=== PATIENT | male | born 1995 | race Caucasian/White ===

== ENCOUNTER 2018-01-13 12:16 | Inpatient (IN) | payer MEDICARE, OTHER ==
[2018-01-13 13:36] LABS: ADD MAN DIFF? NO
[2018-01-13 13:38] LABS: BASOPHILS % 0.4 % (0.0-2.0); EOSINOPHILS # 0.1 10^3/ul (0.0-0.5); HEMATOCRIT 47.8 % (42.0-52.0); HEMOGLOBIN 16.4 g/dl (14.0-18.0); LYMPHOCYTES # 1.8 10^3/ul (0.8-2.9); LYMPHOCYTES % 24.2 % (15.0-51.0); MEAN CORPUSCULAR HEMOGLOBIN 30.6 pg (29.0-33.0); MEAN CORPUSCULAR HGB CONC 34.3 g/dl (32.0-37.0); MEAN CORPUSCULAR VOLUME 89.2 fl (82.0-101.0); MEAN PLATELET VOLUME 9.3 fl (7.4-10.4); MONOCYTE # 0.5 10^3/ul (0.3-0.9); MONOCYTES % 6.6 % (0.0-11.0); NEUTROPHIL # 4.9 10^3/ul (1.6-7.5); NEUTROPHILS % 67.7 % (39.0-77.0); PLATELET COUNT 385 10^3/UL (140-415); RED BLOOD COUNT 5.36 10^6/ul (4.70-6.10); RED CELL DISTRIBUTION WIDTH 12.3 % (11.5-14.5)
[2018-01-13 13:38] LABS: WHITE BLOOD COUNT 7.2 10^3/ul (4.8-10.8)
[2018-01-13] MEDS: ONDANSETRON 4 MG INJ IV (13:49)
[2018-01-13] MEDS: KETOROLAC 15 MG INJ IV (13:49)
[2018-01-13] MEDS: FAMOTIDINE 20 MG INJ IV (13:49)
[2018-01-13] MEDS: SOD CHLORIDE 0.9% 1,000 ML IV (13:50)
[2018-01-13 13:56] LABS: ALANINE AMINOTRANSFERASE 57 IU/L (13-69); ALBUMIN 4.9 g/dl (3.3-4.9); ALBUMIN/GLOBULIN RATIO 1.13; ALKALINE PHOSPHATASE 120 IU/L (42-121); ANION GAP 22 (8-16); ASPARTATE AMINO TRANSFERASE 37 IU/L (15-46); BILIRUBIN,INDIRECT 0.2 mg/dl (0-1.1); BILIRUBIN,TOTAL 0.2 mg/dl (0.2-1.3); BLOOD UREA NITROGEN 19 mg/dl (7-20); CALCIUM 10.1 mg/dl (8.4-10.2); CARBON DIOXIDE 30 mmol/L (21-31); CHLORIDE 101 mmol/L (97-110); CREATININE 0.77 mg/dl (0.61-1.24); GLUCOSE 154 mg/dl (70-220); LIPASE 84 U/L (23-300); POTASSIUM 4.4 mmol/L (3.5-5.1); SODIUM 149 mmol/L (135-144); TOTAL PROTEIN 9.2 g/dl (6.1-8.1)
[2018-01-13 14:03] LABS: INR 0.89; PROTIME 12.1 Sec (11.9-14.9); PT RATIO 0.9
[2018-01-13 14:04] LABS: PARTIAL THROMBOPLASTIN TIME 26.6 Sec (25.0-35.0)
[2018-01-13 14:08] LABS: TROPONIN-I < 0.012 ng/ml (0.00-0.12)
[2018-01-13 14:37] LABS: LACTIC ACID 2.5 mmol/L (0.5-2.0)
[2018-01-13 14:38] LABS: ADD UMIC YES; UR ASCORBIC ACID 40 mg/dL (NEGATIVE); UR BILIRUBIN (Dip) NEGATIVE (NEGATIVE); UR BLOOD (Dip) NEGATIVE (NEGATIVE); UR CLARITY CLEAR (CLEAR); UR COLOR YELLOW (YELLOW); UR GLUCOSE (Dip) 1+ mg/dL (NEGATIVE); UR KETONES (Dip) NEGATIVE (NEGATIVE); UR LEUKOCYTE ESTERASE (Dip) NEGATIVE Leu/ul (NEGATIVE); UR NITRITE (Dip) NEGATIVE (NEGATIVE); UR RBC 1 /HPF (0-5); UR SPECIFIC GRAVITY (Dip) 1.021 (1.003-1.030); UR TOTAL PROTEIN (Dip) 1+ mg/dl (NEGATIVE); UR UROBILINOGEN (Dip) NEGATIVE (NEGATIVE); UR WBC 1 /HPF (0-5)
[2018-01-13] MEDS: LEVOFLOXACIN 750MG/D5W (PMX) 150 ML IVPB (15:24)
[2018-01-13] MEDS: SODIUM CHLORIDE 0.9% 1L BAG IV* (15:25)
[2018-01-13] MEDS ORDERED: PIPER-TAZO 3.375 GM IV (PMX) 100 ML IVPB (15:30)
[2018-01-13] MEDS ORDERED: ALBUTEROL HFA 8 GM INHALER INH ×2 (15:30→17:00)
[2018-01-13] MEDS ORDERED: ONDANSETRON 4 MG INJ IV (15:30)
[2018-01-13] MEDS ORDERED: VANCOMYCIN IV PER PHARMACY XX (15:30)
[2018-01-13 17:52] LABS: LACTIC ACID 1.3 mmol/L (0.5-2.0)
[2018-01-13] MEDS: PIPER-TAZO 3.375 GM IV (PMX) 100 ML IVPB (18:56)
[2018-01-13] MEDS: morphine 4 MG/ML VIAL IV (19:08)
[2018-01-13] MEDS ORDERED: ALBUTEROL 0.083% (NEB) 2.5 MG/3 ML AMP HHN (19:30)
[2018-01-13] MEDS: VANCOMYCIN 1 GM in 250 ML IVPB (19:39)
[2018-01-13] MEDS: ALBUTEROL 0.083% (NEB) 2.5 MG/3 ML AMP HHN (20:20)
[2018-01-13] MEDS: PROPRANOLOL (4 MG/ML PO SYG) GTB (20:29)
[2018-01-13] MEDS: LEVETIRACETAM (100 MG/ML PO SYG) GTB (20:30)
[2018-01-13] MEDS: FAMOTIDINE 20 MG TAB GTB (20:44)
[2018-01-14] MEDS: PIPER-TAZO 3.375 GM IV (PMX) 100 ML IVPB ×4 (01:15→17:28)
[2018-01-14] MEDS: VANCOMYCIN 750 MG in DEXTROSE 5% 150 ML IVPB ×2 (03:13→09:26)
[2018-01-14 06:24] LABS: ADD MAN DIFF? NO
[2018-01-14 06:27] LABS: BASOPHILS % 0.3 % (0.0-2.0); EOSINOPHILS # 0.2 10^3/ul (0.0-0.5); EOSINOPHILS % 1.9 % (0.0-7.0); HEMATOCRIT 42.1 % (42.0-52.0); HEMOGLOBIN 14.7 g/dl (14.0-18.0); LYMPHOCYTES # 2.4 10^3/ul (0.8-2.9); LYMPHOCYTES % 24.2 % (15.0-51.0); MEAN CORPUSCULAR HEMOGLOBIN 31.3 pg (29.0-33.0); MEAN CORPUSCULAR HGB CONC 34.9 g/dl (32.0-37.0); MEAN CORPUSCULAR VOLUME 89.8 fl (82.0-101.0); MEAN PLATELET VOLUME 9.2 fl (7.4-10.4); MONOCYTE # 0.9 10^3/ul (0.3-0.9); MONOCYTES % 9.6 % (0.0-11.0); NEUTROPHIL # 6.3 10^3/ul (1.6-7.5); NEUTROPHILS % 63.8 % (39.0-77.0); PLATELET COUNT 364 10^3/UL (140-415); RED BLOOD COUNT 4.69 10^6/ul (4.70-6.10)
[2018-01-14 06:27] LABS: WHITE BLOOD COUNT 9.8 10^3/ul (4.8-10.8)
[2018-01-14 06:50] LABS: LACTIC ACID 1.7 mmol/L (0.5-2.0)
[2018-01-14 06:53] LABS: ANION GAP 18 (8-16); BLOOD UREA NITROGEN 14 mg/dl (7-20); CALCIUM 9.1 mg/dl (8.4-10.2); CARBON DIOXIDE 28 mmol/L (21-31); CHLORIDE 103 mmol/L (97-110); CREATININE 0.68 mg/dl (0.61-1.24); GLUCOSE 116 mg/dl (70-220); MAGNESIUM 1.9 mg/dl (1.7-2.5); PHOSPHORUS 4.3 mg/dl (2.5-4.9); POTASSIUM 3.9 mmol/L (3.5-5.1); SODIUM 145 mmol/L (135-144)
[2018-01-14] MEDS: ALBUTEROL 0.083% (NEB) 2.5 MG/3 ML AMP HHN ×4 (08:32→20:35)
[2018-01-14] MEDS: FAMOTIDINE 20 MG TAB GTB ×2 (09:25→20:23)
[2018-01-14] MEDS: LEVETIRACETAM (100 MG/ML PO SYG) GTB ×2 (10:30→20:22)
[2018-01-14] MEDS: PROPRANOLOL (4 MG/ML PO SYG) GTB ×2 (12:04→20:23)
[2018-01-15] MEDS: PIPER-TAZO 3.375 GM IV (PMX) 100 ML IVPB ×5 (00:57→23:24)
[2018-01-15 06:06] LABS: ADD MAN DIFF? NO
[2018-01-15 06:08] LABS: AADO2 Arterial 58.5 mmHg (7.0-24.0); Allen Test ACCEPTAB; Arterial Base Excess 2.5 mmol/L (-3.0-3); Arterial Blood Gas Oxygen Sat 98.1 mmHG (95.0-98.0); Arterial COHb 0.6 % (0.0-3.0); Arterial Fraction of Oxyhgb 97.2 % (93.0-99.0); Arterial HCO3 25.5 mmol/L (22.0-26.0); Arterial MetHb 0.3 % (0.0-1.5); Arterial Total Hemglobin 16.3 g/dl (12.0-18.0); Arterial pCO2 34.9 mmhg (35-45); MODE TRACH COLLAR; Site Left Radial
[2018-01-15 06:18] LABS: BASOPHILS % 0.5 % (0.0-2.0); EOSINOPHILS # 0.1 10^3/ul (0.0-0.5); EOSINOPHILS % 1.7 % (0.0-7.0); HEMATOCRIT 42.3 % (42.0-52.0); HEMOGLOBIN 14.9 g/dl (14.0-18.0); LYMPHOCYTES # 2.1 10^3/ul (0.8-2.9); LYMPHOCYTES % 27.6 % (15.0-51.0); MEAN CORPUSCULAR HEMOGLOBIN 31.2 pg (29.0-33.0); MEAN CORPUSCULAR HGB CONC 35.2 g/dl (32.0-37.0); MEAN CORPUSCULAR VOLUME 88.7 fl (82.0-101.0); MEAN PLATELET VOLUME 9.4 fl (7.4-10.4); MONOCYTE # 0.7 10^3/ul (0.3-0.9); MONOCYTES % 9.9 % (0.0-11.0); NEUTROPHIL # 4.5 10^3/ul (1.6-7.5); NEUTROPHILS % 59.9 % (39.0-77.0); PLATELET COUNT 336 10^3/UL (140-415); RED BLOOD COUNT 4.77 10^6/ul (4.70-6.10); RED CELL DISTRIBUTION WIDTH 12.4 % (11.5-14.5)
[2018-01-15 06:18] LABS: WHITE BLOOD COUNT 7.5 10^3/ul (4.8-10.8)
[2018-01-15 06:40] LABS: LACTIC ACID 1.5 mmol/L (0.5-2.0)
[2018-01-15 06:50] LABS: ANION GAP 18 (8-16); BLOOD UREA NITROGEN 15 mg/dl (7-20); CALCIUM 9.6 mg/dl (8.4-10.2); CARBON DIOXIDE 31 mmol/L (21-31); CHLORIDE 104 mmol/L (97-110); CREATININE 0.82 mg/dl (0.61-1.24); GLUCOSE 109 mg/dl (70-220); POTASSIUM 3.5 mmol/L (3.5-5.1); SODIUM 149 mmol/L (135-144)
[2018-01-15] MEDS: ALBUTEROL 0.083% (NEB) 2.5 MG/3 ML AMP HHN ×4 (08:38→21:29)
[2018-01-15] MEDS: LEVETIRACETAM (100 MG/ML PO SYG) GTB ×2 (08:45→21:44)
[2018-01-15] MEDS: FAMOTIDINE 20 MG TAB GTB ×2 (08:46→20:52)
[2018-01-15] MEDS: PROPRANOLOL (4 MG/ML PO SYG) GTB ×2 (10:17→20:54)
[2018-01-15] MEDS: ACETAMINOPHEN 650MG/20.3ML CUP GTB ×3 (12:37→23:55)
[2018-01-15] MEDS: LACTOBACILLUS RHAMNOSUS CAP PO ×2 (18:32→23:24)
[2018-01-15] MEDS: LOPERAMIDE LIQUID CUP 1 MG/5 ML CUP GTB (23:55)
[2018-01-16] MEDS: PIPER-TAZO 3.375 GM IV (PMX) 100 ML IVPB ×4 (05:59→23:29)
[2018-01-16] MEDS: ALBUTEROL 0.083% (NEB) 2.5 MG/3 ML AMP HHN ×4 (08:26→20:53)
[2018-01-16 08:58] LABS: ADD MAN DIFF? NO
[2018-01-16] MEDS: INFLUENZA VIRUS VACCINE 0.5 ML (DISPENSING) IM* (09:00)
[2018-01-16] MEDS ORDERED: LACTOBACILLUS RHAMNOSUS CAP PO (09:00)
[2018-01-16] MEDS: LACTOBACILLUS RHAMNOSUS CAP PO ×2 (09:00→20:15)
[2018-01-16 09:03] LABS: WHITE BLOOD COUNT 7.3 10^3/ul (4.8-10.8)
[2018-01-16 09:03] LABS: BASOPHILS % 0.4 % (0.0-2.0); EOSINOPHILS # 0.3 10^3/ul (0.0-0.5); EOSINOPHILS % 4.2 % (0.0-7.0); HEMOGLOBIN 15.4 g/dl (14.0-18.0); LYMPHOCYTES # 1.9 10^3/ul (0.8-2.9); LYMPHOCYTES % 25.8 % (15.0-51.0); MEAN CORPUSCULAR VOLUME 88.5 fl (82.0-101.0); MEAN PLATELET VOLUME 9.3 fl (7.4-10.4); MONOCYTE # 0.7 10^3/ul (0.3-0.9); MONOCYTES % 10.1 % (0.0-11.0); NEUTROPHIL # 4.3 10^3/ul (1.6-7.5); NEUTROPHILS % 59.2 % (39.0-77.0); PLATELET COUNT 335 10^3/UL (140-415); RED BLOOD COUNT 4.97 10^6/ul (4.70-6.10); RED CELL DISTRIBUTION WIDTH 12.5 % (11.5-14.5)
[2018-01-16 09:32] LABS: ANION GAP 18 (8-16); BLOOD UREA NITROGEN 16 mg/dl (7-20); CALCIUM 9.5 mg/dl (8.4-10.2); CARBON DIOXIDE 29 mmol/L (21-31); CHLORIDE 107 mmol/L (97-110); CREATININE 0.79 mg/dl (0.61-1.24); GLUCOSE 105 mg/dl (70-220); POTASSIUM 3.1 mmol/L (3.5-5.1); SODIUM 151 mmol/L (135-144)
[2018-01-16] MEDS: ACETAMINOPHEN 650MG/20.3ML CUP GTB ×2 (09:34→18:11)
[2018-01-16] MEDS: FAMOTIDINE 20 MG TAB GTB ×2 (09:34→20:15)
[2018-01-16] MEDS: PROPRANOLOL (4 MG/ML PO SYG) GTB ×2 (09:36→20:16)
[2018-01-16] MEDS: LEVETIRACETAM (100 MG/ML) 5ML CUP PO ×2 (10:55→20:15)
[2018-01-16] MEDS: LOPERAMIDE LIQUID CUP 1 MG/5 ML CUP GTB ×2 (14:58→20:17)
[2018-01-16] MEDS: POTASSIUM CHLORIDE 20 MEQ POWDER FOR ORAL SOLN GTB (14:58)
[2018-01-17] MEDS: PIPER-TAZO 3.375 GM IV (PMX) 100 ML IVPB (05:31)
[2018-01-17 07:45] LABS: ADD MAN DIFF? NO
[2018-01-17 07:48] LABS: BASOPHILS % 0.2 % (0.0-2.0); EOSINOPHILS # 0.4 10^3/ul (0.0-0.5); HEMATOCRIT 44.2 % (42.0-52.0); HEMOGLOBIN 15.4 g/dl (14.0-18.0); LYMPHOCYTES # 1.9 10^3/ul (0.8-2.9); MEAN CORPUSCULAR HEMOGLOBIN 30.9 pg (29.0-33.0); MEAN CORPUSCULAR HGB CONC 34.8 g/dl (32.0-37.0); MEAN CORPUSCULAR VOLUME 88.8 fl (82.0-101.0); MONOCYTE # 0.7 10^3/ul (0.3-0.9); MONOCYTES % 9.1 % (0.0-11.0); NEUTROPHIL # 4.9 10^3/ul (1.6-7.5); NEUTROPHILS % 61.5 % (39.0-77.0); PLATELET COUNT 353 10^3/UL (140-415); RED BLOOD COUNT 4.98 10^6/ul (4.70-6.10); RED CELL DISTRIBUTION WIDTH 12.7 % (11.5-14.5)
[2018-01-17 08:16] LABS: MAGNESIUM 2.1 mg/dl (1.7-2.5)
[2018-01-17 08:16] LABS: PHOSPHORUS 3.7 mg/dl (2.5-4.9)
[2018-01-17 08:25] LABS: ANION GAP 17 (8-16); BLOOD UREA NITROGEN 16 mg/dl (7-20); CALCIUM 9.5 mg/dl (8.4-10.2); CARBON DIOXIDE 29 mmol/L (21-31); CHLORIDE 108 mmol/L (97-110); CREATININE 0.79 mg/dl (0.61-1.24); GLUCOSE 119 mg/dl (70-220); POTASSIUM 3.7 mmol/L (3.5-5.1); SODIUM 150 mmol/L (135-144)
[2018-01-17] MEDS: ALBUTEROL 0.083% (NEB) 2.5 MG/3 ML AMP HHN ×4 (08:33→20:09)
[2018-01-17] MEDS: ACETAMINOPHEN 650MG/20.3ML CUP GTB ×3 (09:37→21:44)
[2018-01-17] MEDS: LACTOBACILLUS RHAMNOSUS CAP PO ×2 (09:38→21:43)
[2018-01-17] MEDS: FAMOTIDINE 20 MG TAB GTB ×2 (09:38→21:43)
[2018-01-17] MEDS: PROPRANOLOL (4 MG/ML PO SYG) GTB ×2 (09:39→21:43)
[2018-01-17] MEDS: LEVETIRACETAM (100 MG/ML) 5ML CUP PO ×2 (09:40→21:44)
[2018-01-17] MEDS: FUROSEMIDE 20 MG INJ IV (10:51)
[2018-01-17] MEDS: POTASSIUM CHLORIDE 20 MEQ POWDER FOR ORAL SOLN GTB (10:52)
[2018-01-17] MEDS ORDERED: MEROPENEM 1 GM/50ML(PMX) 50 ML IVPB (13:00)
[2018-01-17 13:41] LABS: ANION GAP 22 (8-16); BLOOD UREA NITROGEN 15 mg/dl (7-20); CALCIUM 10.1 mg/dl (8.4-10.2); CARBON DIOXIDE 28 mmol/L (21-31); CHLORIDE 106 mmol/L (97-110); CREATININE 0.81 mg/dl (0.61-1.24); GLUCOSE 139 mg/dl (70-220); POTASSIUM 4.2 mmol/L (3.5-5.1); SODIUM 152 mmol/L (135-144)
[2018-01-17] MEDS: DEXTROSE 5%-0.45% NACL 1,000 ML IV (17:09)
[2018-01-17] MEDS: CEFEPIME 2GM/50 ML (PMX) 50 ML IVPB (21:44)
[2018-01-18 08:00] LABS: ADD MAN DIFF? NO
[2018-01-18 08:07] LABS: WHITE BLOOD COUNT 7.8 10^3/ul (4.8-10.8)
[2018-01-18 08:07] LABS: BASOPHIL # 0.1 10^3/ul (0.0-0.1); BASOPHILS % 0.6 % (0.0-2.0); EOSINOPHILS # 0.4 10^3/ul (0.0-0.5); EOSINOPHILS % 5.5 % (0.0-7.0); HEMATOCRIT 45.6 % (42.0-52.0); HEMOGLOBIN 15.8 g/dl (14.0-18.0); LYMPHOCYTES # 1.9 10^3/ul (0.8-2.9); LYMPHOCYTES % 24.2 % (15.0-51.0); MEAN CORPUSCULAR HEMOGLOBIN 31.1 pg (29.0-33.0); MEAN CORPUSCULAR HGB CONC 34.6 g/dl (32.0-37.0); MEAN CORPUSCULAR VOLUME 89.8 fl (82.0-101.0); MEAN PLATELET VOLUME 9.1 fl (7.4-10.4); MONOCYTE # 0.8 10^3/ul (0.3-0.9); MONOCYTES % 9.6 % (0.0-11.0); NEUTROPHIL # 4.7 10^3/ul (1.6-7.5); NEUTROPHILS % 59.8 % (39.0-77.0); PLATELET COUNT 375 10^3/UL (140-415); RED BLOOD COUNT 5.08 10^6/ul (4.70-6.10); RED CELL DISTRIBUTION WIDTH 12.7 % (11.5-14.5)
[2018-01-18 08:26] LABS: MAGNESIUM 2.1 mg/dl (1.7-2.5)
[2018-01-18 08:26] LABS: PHOSPHORUS 3.5 mg/dl (2.5-4.9)
[2018-01-18 08:31] LABS: ANION GAP 20 (8-16); BLOOD UREA NITROGEN 15 mg/dl (7-20); CALCIUM 9.7 mg/dl (8.4-10.2); CARBON DIOXIDE 27 mmol/L (21-31); CHLORIDE 105 mmol/L (97-110); CREATININE 0.71 mg/dl (0.61-1.24); GLUCOSE 124 mg/dl (70-220); POTASSIUM 3.7 mmol/L (3.5-5.1); SODIUM 148 mmol/L (135-144)
[2018-01-18] MEDS: ALBUTEROL 0.083% (NEB) 2.5 MG/3 ML AMP HHN ×2 (08:45→13:30)
[2018-01-18] MEDS: FAMOTIDINE 20 MG TAB GTB (09:07)
[2018-01-18] MEDS: LACTOBACILLUS RHAMNOSUS CAP PO (09:07)
[2018-01-18] MEDS: CEFEPIME 2GM/50 ML (PMX) 50 ML IVPB (09:08)
[2018-01-18] MEDS: PROPRANOLOL (4 MG/ML PO SYG) GTB (09:08)
[2018-01-18] MEDS: LEVETIRACETAM (100 MG/ML) 5ML CUP PO (09:08)
[2018-01-18] MEDS: ACETAMINOPHEN 650MG/20.3ML CUP GTB (09:14)
[2018-01-18] MEDS: DEXTROSE 5%-0.45% NACL 1,000 ML IV (09:23)
== END 2018-01-18 16:33 | disposition home health service (06) | DRG 207 ==
LOC: MS4 14:45 → E/R 12:16
PROC: 5A1955Z Respiratory Ventilation, Greater than 96 Consecutive Hours (ICD-10-PCS; principal; 2018-01-13)
PROC: 4A033R1 Measurement of Arterial Saturation, Peripheral, Percutaneous Approach (ICD-10-PCS; 2018-01-15)
DX: J69.0 Pneumonitis due to inhalation of food and vomit (principal); G93.49 Other encephalopathy; E87.0 Hyperosmolality and hypernatremia; J96.10 Chronic respiratory failure, unspecified whether with hypoxia or hypercapnia; Z99.81 Dependence on supplemental oxygen; Z99.11 Dependence on respirator [ventilator] status; R19.7 Diarrhea, unspecified; R13.19 Other dysphagia; G40.909 Epilepsy, unspecified, not intractable, without status epilepticus; Z93.0 Tracheostomy status; Z93.1 Gastrostomy status; Z74.01 Bed confinement status; Z87.820 Personal history of traumatic brain injury
CPT/HCPCS: 36415; 36600; 71045; 74018; 74176; 80048; 80053; 81001; 82803; 83605; 83690; 83735; 84100; 84484; 85025; 85610; 85730; 87040; 87070; 87086; 87400; 89220; 93005; 94640; 94664; 96374; 96375; 99291-25; J1940

== ENCOUNTER 2018-01-21 22:03 | Inpatient (IN) | payer MEDICARE, OTHER ==
[2018-01-22] MEDS: ONDANSETRON 4 MG INJ IV (00:53)
[2018-01-22 00:59] LABS: ADD MAN DIFF? NO
[2018-01-22] MEDS: SOD CHLORIDE 0.9% IV (00:59)
[2018-01-22 01:00] LABS: WHITE BLOOD COUNT 8.2 10^3/ul (4.8-10.8)
[2018-01-22 01:00] LABS: BASOPHIL # 0.1 10^3/ul (0.0-0.1); BASOPHILS % 0.6 % (0.0-2.0); EOSINOPHILS # 0.1 10^3/ul (0.0-0.5); EOSINOPHILS % 0.9 % (0.0-7.0); HEMATOCRIT 48.1 % (42.0-52.0); HEMOGLOBIN 16.8 g/dl (14.0-18.0); LYMPHOCYTES # 1.4 10^3/ul (0.8-2.9); LYMPHOCYTES % 16.5 % (15.0-51.0); MEAN CORPUSCULAR HEMOGLOBIN 30.9 pg (29.0-33.0); MEAN CORPUSCULAR HGB CONC 34.9 g/dl (32.0-37.0); MEAN CORPUSCULAR VOLUME 88.4 fl (82.0-101.0); MEAN PLATELET VOLUME 9.1 fl (7.4-10.4); MONOCYTE # 0.7 10^3/ul (0.3-0.9); NEUTROPHILS % 72.5 % (39.0-77.0); PLATELET COUNT 377 10^3/UL (140-415); RED BLOOD COUNT 5.44 10^6/ul (4.70-6.10); RED CELL DISTRIBUTION WIDTH 12.4 % (11.5-14.5)
[2018-01-22 01:15] LABS: ALANINE AMINOTRANSFERASE 57 IU/L (13-69); ALBUMIN 5.2 g/dl (3.3-4.9); ALBUMIN/GLOBULIN RATIO 1.33; ALKALINE PHOSPHATASE 120 IU/L (42-121); ANION GAP 22 (8-16); ASPARTATE AMINO TRANSFERASE 40 IU/L (15-46); BILIRUBIN,INDIRECT 0.1 mg/dl (0-1.1); BILIRUBIN,TOTAL 0.1 mg/dl (0.2-1.3); BLOOD UREA NITROGEN 14 mg/dl (7-20); CALCIUM 10.4 mg/dl (8.4-10.2); CARBON DIOXIDE 29 mmol/L (21-31); CHLORIDE 99 mmol/L (97-110); GLUCOSE 133 mg/dl (70-220); POTASSIUM 3.9 mmol/L (3.5-5.1); SODIUM 146 mmol/L (135-144); TOTAL PROTEIN 9.1 g/dl (6.1-8.1)
[2018-01-22] MEDS: IOHEXOL 300MG/ML 150 ML BTL ×2 (01:29→14:18)
[2018-01-22] MEDS: SOD CHLORIDE 0.9% 100 ML ×2 (01:29→14:18)
[2018-01-22] MEDS: PIPER-TAZO 3.375 GM IV (PMX) 100 ML IVPB ×2 (01:46→09:14)
[2018-01-22 02:15] LABS: ADD UMIC NO; UR ASCORBIC ACID 40 mg/dL (NEGATIVE); UR BILIRUBIN (Dip) NEGATIVE (NEGATIVE); UR BLOOD (Dip) NEGATIVE (NEGATIVE); UR CLARITY CLEAR (CLEAR); UR COLOR YELLOW (YELLOW); UR GLUCOSE (Dip) NEGATIVE (NEGATIVE); UR KETONES (Dip) NEGATIVE (NEGATIVE); UR LEUKOCYTE ESTERASE (Dip) NEGATIVE Leu/ul (NEGATIVE); UR NITRITE (Dip) NEGATIVE (NEGATIVE); UR SPECIFIC GRAVITY (Dip) 1.013 (1.003-1.030); UR TOTAL PROTEIN (Dip) NEGATIVE (NEGATIVE); UR UROBILINOGEN (Dip) NEGATIVE (NEGATIVE)
[2018-01-22 04:04] LABS: LACTIC ACID 2.2 mmol/L (0.5-2.0)
[2018-01-22] MEDS ORDERED: ONDANSETRON 4 MG INJ IV (05:30)
[2018-01-22 06:30] LABS: LACTIC ACID 2.7 mmol/L (0.5-2.0)
[2018-01-22] MEDS: PANTOPRAZOLE 40 MG INJ IV (07:02)
[2018-01-22] MEDS: SOD CHLORIDE 0.9% 1,000 ML IV ×3 (07:02→20:18)
[2018-01-22] MEDS: DEXAMETHASONE 10 MG/ML 1 ML INJ IV (10:46)
[2018-01-22] MEDS: LEVETIRACETAM (100 MG/ML) 5ML CUP GTB ×2 (11:06→21:05)
[2018-01-22] MEDS: CEFEPIME 1GM/50 ML (PMX) 50 ML IVPB ×2 (11:06→21:05)
[2018-01-22 11:12] LABS: INR 0.96; PROTIME 12.9 Sec (11.9-14.9)
[2018-01-22 11:13] LABS: PARTIAL THROMBOPLASTIN TIME 29.9 Sec (25.0-35.0)
[2018-01-22] MEDS: DEXAMETHASONE 4 MG/ML 1 ML INJ IV ×2 (12:19→18:46)
[2018-01-22] MEDS ORDERED: FAMOTIDINE 20 MG TAB GTB (21:00)
[2018-01-23] MEDS: DEXAMETHASONE 4 MG/ML 1 ML INJ IV ×4 (00:11→17:00)
[2018-01-23 05:16] LABS: ADD MAN DIFF? NO
[2018-01-23 05:25] LABS: WHITE BLOOD COUNT 12.7 10^3/ul (4.8-10.8)
[2018-01-23 05:25] LABS: BASOPHILS % 0.2 % (0.0-2.0); HEMATOCRIT 41.7 % (42.0-52.0); HEMOGLOBIN 14.7 g/dl (14.0-18.0); LYMPHOCYTES # 0.9 10^3/ul (0.8-2.9); LYMPHOCYTES % 7.1 % (15.0-51.0); MEAN CORPUSCULAR HEMOGLOBIN 31.1 pg (29.0-33.0); MEAN CORPUSCULAR HGB CONC 35.3 g/dl (32.0-37.0); MEAN CORPUSCULAR VOLUME 88.2 fl (82.0-101.0); MEAN PLATELET VOLUME 9.4 fl (7.4-10.4); MONOCYTE # 0.4 10^3/ul (0.3-0.9); MONOCYTES % 3.3 % (0.0-11.0); NEUTROPHIL # 11.4 10^3/ul (1.6-7.5); NEUTROPHILS % 89.1 % (39.0-77.0); PLATELET COUNT 348 10^3/UL (140-415); RED BLOOD COUNT 4.73 10^6/ul (4.70-6.10); RED CELL DISTRIBUTION WIDTH 12.3 % (11.5-14.5)
[2018-01-23 05:40] LABS: PHOSPHORUS 3.3 mg/dl (2.5-4.9)
[2018-01-23 05:40] LABS: MAGNESIUM 1.9 mg/dl (1.7-2.5)
[2018-01-23 05:49] LABS: ANION GAP 23 (8-16); BLOOD UREA NITROGEN 13 mg/dl (7-20); CALCIUM 10.1 mg/dl (8.4-10.2); CARBON DIOXIDE 27 mmol/L (21-31); CHLORIDE 100 mmol/L (97-110); GLUCOSE 174 mg/dl (70-220); POTASSIUM 3.9 mmol/L (3.5-5.1); SODIUM 146 mmol/L (135-144)
[2018-01-23 06:23] LABS: HIV 1&2 ANTIBODY NEGATIVE (NEGATIVE)
[2018-01-23] MEDS: PANTOPRAZOLE 40 MG INJ IV (06:52)
[2018-01-23] MEDS: ACETAMINOPHEN 650 MG SUPP PR ×2 (06:52→18:25)
[2018-01-23] MEDS: LEVETIRACETAM (100 MG/ML) 5ML CUP GTB ×2 (08:40→21:06)
[2018-01-23] MEDS: CEFEPIME 1GM/50 ML (PMX) 50 ML IVPB ×2 (08:43→21:07)
[2018-01-23] MEDS: SOD CHLORIDE 0.9% 1,000 ML IV ×2 (09:44→16:28)
[2018-01-23 13:53] LABS: LACTIC ACID 2.9 mmol/L (0.5-2.0)
[2018-01-23] MEDS ORDERED: VANCOMYCIN IV PER PHARMACY XX (16:00)
[2018-01-23] MEDS: VANCOMYCIN 1.5 GM in SOD CHLORIDE 0.9% 250 ML IVPB (17:00)
[2018-01-23] MEDS: DOCUSATE SODIUM 10 MG/ML (10ML CUP) GTB (21:06)
[2018-01-23 21:07] LABS: LACTIC ACID 3.4 mmol/L (0.5-2.0)
[2018-01-23] MEDS: MAGNESIUM HYDROXIDE 30ML CUP PO (21:07)
[2018-01-24] MEDS: DEXAMETHASONE 4 MG/ML 1 ML INJ IV ×4 (00:22→19:33)
[2018-01-24 01:21] LABS: LACTIC ACID 3.1 mmol/L (0.5-2.0)
[2018-01-24] MEDS: VANCOMYCIN 1 GM 250 ML IVPB ×3 (01:49→19:34)
[2018-01-24 05:39] LABS: ADD MAN DIFF? NO
[2018-01-24 05:45] LABS: BASOPHILS % 0.1 % (0.0-2.0); HEMATOCRIT 42.1 % (42.0-52.0); HEMOGLOBIN 14.3 g/dl (14.0-18.0); LYMPHOCYTES # 1.1 10^3/ul (0.8-2.9); LYMPHOCYTES % 9.1 % (15.0-51.0); MEAN CORPUSCULAR HEMOGLOBIN 30.7 pg (29.0-33.0); MEAN CORPUSCULAR VOLUME 90.3 fl (82.0-101.0); MEAN PLATELET VOLUME 9.2 fl (7.4-10.4); MONOCYTE # 0.8 10^3/ul (0.3-0.9); MONOCYTES % 6.3 % (0.0-11.0); NEUTROPHIL # 10.2 10^3/ul (1.6-7.5); PLATELET COUNT 331 10^3/UL (140-415); RED BLOOD COUNT 4.66 10^6/ul (4.70-6.10); RED CELL DISTRIBUTION WIDTH 12.7 % (11.5-14.5)
[2018-01-24 05:45] LABS: WHITE BLOOD COUNT 12.2 10^3/ul (4.8-10.8)
[2018-01-24 06:18] LABS: ANION GAP 19 (8-16); BLOOD UREA NITROGEN 19 mg/dl (7-20); CALCIUM 9.4 mg/dl (8.4-10.2); CARBON DIOXIDE 25 mmol/L (21-31); CHLORIDE 106 mmol/L (97-110); CREATININE 0.58 mg/dl (0.61-1.24); GLUCOSE 163 mg/dl (70-220); POTASSIUM 4.2 mmol/L (3.5-5.1); SODIUM 146 mmol/L (135-144)
[2018-01-24] MEDS: PANTOPRAZOLE 40 MG INJ IV (06:21)
[2018-01-24 06:27] LABS: LACTIC ACID 2.8 mmol/L (0.5-2.0)
[2018-01-24] MEDS: DOCUSATE SODIUM 10 MG/ML (10ML CUP) GTB ×2 (08:27→20:53)
[2018-01-24] MEDS: LEVETIRACETAM (100 MG/ML) 5ML CUP GTB ×2 (08:28→20:53)
[2018-01-24] MEDS: CEFEPIME 1GM/50 ML (PMX) 50 ML IVPB ×2 (08:28→22:04)
[2018-01-24] MEDS: ACETAMINOPHEN 650MG/20.3ML CUP NGT ×3 (11:28→20:52)
[2018-01-24] MEDS: MAGNESIUM HYDROXIDE 30ML CUP PO (12:47)
[2018-01-24 13:45] LABS: LACTIC ACID 3.3 mmol/L (0.5-2.0)
[2018-01-24] MEDS: LACTATED RINGER'S 1,000 ML IV (15:13)
[2018-01-24 15:51] LABS: AADO2 Arterial 143.8 mmHg (7.0-24.0); Allen Test ACCEPTAB; Arterial Base Excess 2.7 mmol/L (-3.0-3); Arterial Blood Gas Oxygen Sat 92.8 mmHG (95.0-98.0); Arterial COHb 0.1 % (0.0-3.0); Arterial Fraction of Oxyhgb 92.5 % (93.0-99.0); Arterial HCO3 26.1 mmol/L (22.0-26.0); Arterial MetHb 0.2 % (0.0-1.5); Arterial Total Hemglobin 15.7 g/dl (12.0-18.0); Arterial pCO2 36.4 mmhg (35-45); MODE TRACH COLLAR; Site Right Radial
[2018-01-24 19:19] LABS: VANCOMYCIN,TROUGH 8.2 ug/ml (10.0-20.0)
[2018-01-25] MEDS: DEXAMETHASONE 4 MG/ML 1 ML INJ IV ×5 (00:10→23:45)
[2018-01-25] MEDS: LACTATED RINGER'S 1,000 ML IV ×4 (01:38→16:59)
[2018-01-25] MEDS: VANCOMYCIN 1.25 GM in SOD CHLORIDE 0.9% 250 ML IVPB ×3 (01:39→17:03)
[2018-01-25] MEDS: PANTOPRAZOLE 40 MG INJ IV (06:03)
[2018-01-25 06:07] LABS: ADD MAN DIFF? NO
[2018-01-25] MEDS: ACETAMINOPHEN 650MG/20.3ML CUP NGT ×3 (06:12→21:21)
[2018-01-25 06:13] LABS: BASOPHILS % 0.2 % (0.0-2.0); HEMATOCRIT 42.3 % (42.0-52.0); HEMOGLOBIN 14.7 g/dl (14.0-18.0); LYMPHOCYTES # 1.7 10^3/ul (0.8-2.9); MEAN CORPUSCULAR HGB CONC 34.8 g/dl (32.0-37.0); MEAN CORPUSCULAR VOLUME 89.2 fl (82.0-101.0); MEAN PLATELET VOLUME 9.5 fl (7.4-10.4); MONOCYTE # 1.1 10^3/ul (0.3-0.9); MONOCYTES % 8.4 % (0.0-11.0); NEUTROPHIL # 10.2 10^3/ul (1.6-7.5); NEUTROPHILS % 77.5 % (39.0-77.0); PLATELET COUNT 366 10^3/UL (140-415); RED BLOOD COUNT 4.74 10^6/ul (4.70-6.10); RED CELL DISTRIBUTION WIDTH 12.6 % (11.5-14.5)
[2018-01-25 06:13] LABS: WHITE BLOOD COUNT 13.2 10^3/ul (4.8-10.8)
[2018-01-25 06:38] LABS: ANION GAP 20 (8-16); BLOOD UREA NITROGEN 19 mg/dl (7-20); CALCIUM 9.8 mg/dl (8.4-10.2); CARBON DIOXIDE 26 mmol/L (21-31); CHLORIDE 104 mmol/L (97-110); CREATININE 0.57 mg/dl (0.61-1.24); GLUCOSE 121 mg/dl (70-220); POTASSIUM 4.6 mmol/L (3.5-5.1); SODIUM 145 mmol/L (135-144)
[2018-01-25 06:45] LABS: LACTIC ACID 3.1 mmol/L (0.5-2.0)
[2018-01-25] MEDS: CEFEPIME 1GM/50 ML (PMX) 50 ML IVPB ×2 (08:40→20:58)
[2018-01-25] MEDS: LEVETIRACETAM (100 MG/ML) 5ML CUP GTB ×2 (08:43→20:59)
[2018-01-25] MEDS: DOCUSATE SODIUM 10 MG/ML (10ML CUP) GTB ×2 (08:43→20:58)
[2018-01-25] MEDS: [UNRECOGNIZED DRUG - OTHER] BOTH EYES ×2 (16:58→21:16)
[2018-01-25] MEDS: NEOMYCIN BOTH EYES ×2 (16:58→21:16)
[2018-01-25] MEDS: GRAMICIDIN BOTH EYES ×2 (16:58→21:16)
[2018-01-26] MEDS ORDERED: ETOMIDATE 20 MG INJ
[2018-01-26] MEDS ORDERED: ADENOSINE 3 MG/ML SYRINGE IV
[2018-01-26] MEDS ORDERED: AMIODARONE 150 MG INJ
[2018-01-26] MEDS ORDERED: EPINEPHrine 0.1 MG/ML SYG
[2018-01-26] MEDS ORDERED: ROCURONIUM 50 MG INJ
[2018-01-26] MEDS: VANCOMYCIN 1.25 GM in SOD CHLORIDE 0.9% 250 ML IVPB ×3 (01:38→18:32)
[2018-01-26] MEDS: PANTOPRAZOLE 40 MG INJ IV (05:59)
[2018-01-26] MEDS: DEXAMETHASONE 4 MG/ML 1 ML INJ IV ×4 (05:59→23:07)
[2018-01-26 06:12] LABS: ADD MAN DIFF? NO
[2018-01-26 06:15] LABS: BASOPHILS % 0.2 % (0.0-2.0); HEMATOCRIT 41.9 % (42.0-52.0); HEMOGLOBIN 14.9 g/dl (14.0-18.0); LYMPHOCYTES # 1.5 10^3/ul (0.8-2.9); LYMPHOCYTES % 13.9 % (15.0-51.0); MEAN CORPUSCULAR HEMOGLOBIN 31.4 pg (29.0-33.0); MEAN CORPUSCULAR HGB CONC 35.6 g/dl (32.0-37.0); MEAN CORPUSCULAR VOLUME 88.4 fl (82.0-101.0); MEAN PLATELET VOLUME 9.1 fl (7.4-10.4); MONOCYTE # 0.9 10^3/ul (0.3-0.9); MONOCYTES % 8.2 % (0.0-11.0); NEUTROPHIL # 8.1 10^3/ul (1.6-7.5); NEUTROPHILS % 76.6 % (39.0-77.0); PLATELET COUNT 329 10^3/UL (140-415); RED BLOOD COUNT 4.74 10^6/ul (4.70-6.10); RED CELL DISTRIBUTION WIDTH 12.5 % (11.5-14.5)
[2018-01-26 06:15] LABS: WHITE BLOOD COUNT 10.5 10^3/ul (4.8-10.8)
[2018-01-26 06:37] LABS: ANION GAP 19 (8-16); BLOOD UREA NITROGEN 18 mg/dl (7-20); CALCIUM 9.5 mg/dl (8.4-10.2); CARBON DIOXIDE 25 mmol/L (21-31); CHLORIDE 104 mmol/L (97-110); CREATININE 0.59 mg/dl (0.61-1.24); GLUCOSE 166 mg/dl (70-220); POTASSIUM 3.6 mmol/L (3.5-5.1); SODIUM 144 mmol/L (135-144)
[2018-01-26] MEDS: morphine 2 MG INJ IV ×2 (08:11→11:56)
[2018-01-26] MEDS: LACTATED RINGER'S 1,000 ML IV ×3 (08:26→23:04)
[2018-01-26] MEDS: CEFEPIME 1GM/50 ML (PMX) 50 ML IVPB ×2 (08:56→21:42)
[2018-01-26] MEDS: DOCUSATE SODIUM 10 MG/ML (10ML CUP) GTB ×2 (08:57→20:42)
[2018-01-26] MEDS: GRAMICIDIN BOTH EYES ×3 (08:58→20:31)
[2018-01-26] MEDS: LEVETIRACETAM (100 MG/ML) 5ML CUP GTB ×2 (08:58→21:37)
[2018-01-26] MEDS: NEOMYCIN BOTH EYES ×3 (08:58→20:31)
[2018-01-26] MEDS: [UNRECOGNIZED DRUG - OTHER] BOTH EYES ×3 (08:58→20:31)
[2018-01-26 10:07] LABS: VANCOMYCIN,TROUGH 12.2 ug/ml (10.0-20.0)
[2018-01-26 13:49] LABS: LACTIC ACID 2.8 mmol/L (0.5-2.0)
[2018-01-26] MEDS: ROCURONIUM 50 MG INJ IV (20:30)
[2018-01-26] MEDS: ETOMIDATE 20 MG INJ IV (20:31)
[2018-01-26] MEDS: PROPOFOL 100 ML IV (21:00)
[2018-01-26] MEDS ORDERED: NORepinephrine 8MG/250 ML (PMX 250 ML IV (21:30)
[2018-01-26 21:41] LABS: AADO2 Arterial 147.2 mmHg (7.0-24.0); Allen Test ACCEPTAB; Arterial Base Excess 1.5 mmol/L (-3.0-3); Arterial Blood Gas Oxygen Sat 97.7 mmHG (95.0-98.0); Arterial COHb 0.2 % (0.0-3.0); Arterial Fraction of Oxyhgb 97.1 % (93.0-99.0); Arterial HCO3 24.6 mmol/L (22.0-26.0); Arterial MetHb 0.4 % (0.0-1.5); Arterial Total Hemglobin 14.6 g/dl (12.0-18.0); Arterial pCO2 34.5 mmhg (35-45); Blood Gas Low PEEP Setting 0 cmH2O; MODE VENT - AC; Site Right Radial
[2018-01-27] MEDS: SOD CHLORIDE 0.9% 1,000 ML IV (01:53)
[2018-01-27] MEDS: VANCOMYCIN 1.25 GM in SOD CHLORIDE 0.9% 250 ML IVPB ×3 (01:55→18:04)
[2018-01-27 05:08] LABS: ADD MAN DIFF? NO
[2018-01-27 05:09] LABS: ABNORMAL IP MESSAGE 1; BASOPHIL # 0.1 10^3/ul (0.0-0.1); BASOPHILS % 0.3 % (0.0-2.0); HEMATOCRIT 40.9 % (42.0-52.0); HEMOGLOBIN 14.4 g/dl (14.0-18.0); LYMPHOCYTES # 1.5 10^3/ul (0.8-2.9); LYMPHOCYTES % 9.4 % (15.0-51.0); MEAN CORPUSCULAR HEMOGLOBIN 31.1 pg (29.0-33.0); MEAN CORPUSCULAR HGB CONC 35.2 g/dl (32.0-37.0); MEAN CORPUSCULAR VOLUME 88.3 fl (82.0-101.0); MEAN PLATELET VOLUME 9.4 fl (7.4-10.4); MONOCYTE # 1.5 10^3/ul (0.3-0.9); MONOCYTES % 9.6 % (0.0-11.0); NEUTROPHIL # 12.7 10^3/ul (1.6-7.5); NEUTROPHILS % 79.1 % (39.0-77.0); PLATELET COUNT 387 10^3/UL (140-415); POSITIVE DIFF @See below; RED BLOOD COUNT 4.63 10^6/ul (4.70-6.10); RED CELL DISTRIBUTION WIDTH 12.6 % (11.5-14.5)
[2018-01-27 05:09] LABS: WHITE BLOOD COUNT 16.1 10^3/ul (4.8-10.8)
[2018-01-27] MEDS: PANTOPRAZOLE 40 MG INJ IV (05:31)
[2018-01-27] MEDS: DEXAMETHASONE 4 MG/ML 1 ML INJ IV ×3 (05:31→18:03)
[2018-01-27] MEDS: LACTATED RINGER'S 1,000 ML IV ×3 (05:31→23:00)
[2018-01-27 05:33] LABS: ANION GAP 19 (8-16); BLOOD UREA NITROGEN 25 mg/dl (7-20); CALCIUM 9.5 mg/dl (8.4-10.2); CARBON DIOXIDE 27 mmol/L (21-31); CHLORIDE 109 mmol/L (97-110); CREATININE 0.78 mg/dl (0.61-1.24); GLUCOSE 168 mg/dl (70-220); POTASSIUM 4.2 mmol/L (3.5-5.1); SODIUM 151 mmol/L (135-144)
[2018-01-27] MEDS: PROPOFOL 100 ML IV ×2 (09:00→21:00)
[2018-01-27] MEDS: DOCUSATE SODIUM 10 MG/ML (10ML CUP) GTB ×2 (09:14→21:00)
[2018-01-27] MEDS: CEFEPIME 1GM/50 ML (PMX) 50 ML IVPB ×2 (09:14→21:12)
[2018-01-27] MEDS: LEVETIRACETAM (100 MG/ML) 5ML CUP GTB ×2 (09:15→21:13)
[2018-01-27] MEDS: GRAMICIDIN BOTH EYES ×3 (09:16→21:13)
[2018-01-27] MEDS: NEOMYCIN BOTH EYES ×3 (09:16→21:13)
[2018-01-27] MEDS: [UNRECOGNIZED DRUG - OTHER] BOTH EYES ×3 (09:16→21:13)
[2018-01-28] MEDS: ACETAMINOPHEN 650MG/20.3ML CUP NGT ×2 (00:27→10:38)
[2018-01-28] MEDS: DEXAMETHASONE 4 MG/ML 1 ML INJ IV ×5 (00:27→23:42)
[2018-01-28] MEDS: VANCOMYCIN 1.25 GM in SOD CHLORIDE 0.9% 250 ML IVPB ×2 (01:58→09:26)
[2018-01-28] MEDS: LACTATED RINGER'S 1,000 ML IV ×4 (02:47→22:02)
[2018-01-28] MEDS: PANTOPRAZOLE 40 MG INJ IV (05:58)
[2018-01-28 06:02] LABS: ADD MAN DIFF? NO
[2018-01-28 06:12] LABS: WHITE BLOOD COUNT 27.3 10^3/ul (4.8-10.8)
[2018-01-28 06:12] LABS: ABNORMAL IP MESSAGE 1; BASOPHIL # 0.2 10^3/ul (0.0-0.1); BASOPHILS % 0.5 % (0.0-2.0); HEMATOCRIT 51.1 % (42.0-52.0); HEMOGLOBIN 16.4 g/dl (14.0-18.0); LYMPHOCYTES # 1.8 10^3/ul (0.8-2.9); LYMPHOCYTES % 6.6 % (15.0-51.0); MEAN CORPUSCULAR HEMOGLOBIN 30.6 pg (29.0-33.0); MEAN CORPUSCULAR HGB CONC 32.1 g/dl (32.0-37.0); MEAN CORPUSCULAR VOLUME 95.3 fl (82.0-101.0); MEAN PLATELET VOLUME 9.8 fl (7.4-10.4); MONOCYTE # 4.7 10^3/ul (0.3-0.9); MONOCYTES % 17.1 % (0.0-11.0); NEUTROPHIL # 19.9 10^3/ul (1.6-7.5); NEUTROPHILS % 73.1 % (39.0-77.0); NUCLEATED RED BLOOD CELLS # 0.1 10^3/ul (0.0-0.0); NUCLEATED RED BLOOD CELLS% 0.2 /100WBC (0.0-0.0); PLATELET COUNT 378 10^3/UL (140-415); POSITIVE DIFF @See below; RED BLOOD COUNT 5.36 10^6/ul (4.70-6.10); RED CELL DISTRIBUTION WIDTH 13.7 % (11.5-14.5)
[2018-01-28 07:00] LABS: ANION GAP 24 (8-16); BLOOD UREA NITROGEN 37 mg/dl (7-20); CALCIUM 10.6 mg/dl (8.4-10.2); CARBON DIOXIDE 26 mmol/L (21-31); CHLORIDE 135 mmol/L (97-110); CREATININE 1.49 mg/dl (0.61-1.24); GLUCOSE 173 mg/dl (70-220); POTASSIUM 3.8 mmol/L (3.5-5.1)
[2018-01-28 07:34] LABS: SODIUM 181 mmol/L (135-144)
[2018-01-28] MEDS: SOD CHLORIDE 0.9% 250 ML IV (07:42)
[2018-01-28] MEDS: DEXTROSE 5% 1,000 ML IV (08:04)
[2018-01-28] MEDS: PROPOFOL 100 ML IV ×2 (08:05→21:00)
[2018-01-28] MEDS: NEOMYCIN BOTH EYES ×3 (08:13→21:20)
[2018-01-28] MEDS: GRAMICIDIN BOTH EYES ×3 (08:13→21:20)
[2018-01-28] MEDS: [UNRECOGNIZED DRUG - OTHER] BOTH EYES ×3 (08:13→21:20)
[2018-01-28] MEDS: LEVETIRACETAM (100 MG/ML) 5ML CUP GTB ×2 (08:13→21:20)
[2018-01-28] MEDS: DOCUSATE SODIUM 10 MG/ML (10ML CUP) GTB ×2 (08:14→21:42)
[2018-01-28] MEDS: CEFEPIME 1GM/50 ML (PMX) 50 ML IVPB ×2 (08:14→21:20)
[2018-01-28] MEDS: DESMOPRESSIN 4 MCG INJ IV ×2 (09:19→21:41)
[2018-01-28 12:43] LABS: ANION GAP 21 (8-16); BLOOD UREA NITROGEN 27 mg/dl (7-20); CALCIUM 9.9 mg/dl (8.4-10.2); CARBON DIOXIDE 24 mmol/L (21-31); CHLORIDE 134 mmol/L (97-110); CREATININE 1.31 mg/dl (0.61-1.24); GLUCOSE 281 mg/dl (70-220); POTASSIUM 3.6 mmol/L (3.5-5.1)
[2018-01-28 12:49] LABS: SODIUM 175 mmol/L (135-144)
[2018-01-28 17:26] LABS: VANCOMYCIN,TROUGH 23.4 ug/ml (10.0-20.0)
[2018-01-28] MEDS ORDERED: VANCOMYCIN 1.25 GM in SOD CHLORIDE 0.9% 250 ML IVPB (23:00)
[2018-01-28] MEDS: VANCOMYCIN 1 GM 250 ML IVPB (23:42)
[2018-01-29] MEDS: DEXAMETHASONE 4 MG/ML 1 ML INJ IV (05:32)
[2018-01-29] MEDS: PANTOPRAZOLE 40 MG INJ IV (05:32)
[2018-01-29] MEDS: LACTATED RINGER'S 1,000 ML IV ×3 (07:04→23:17)
[2018-01-29] MEDS: NEOMYCIN BOTH EYES ×3 (08:30→21:01)
[2018-01-29] MEDS: [UNRECOGNIZED DRUG - OTHER] BOTH EYES ×3 (08:30→21:01)
[2018-01-29] MEDS: GRAMICIDIN BOTH EYES ×3 (08:30→21:01)
[2018-01-29] MEDS: LEVETIRACETAM (100 MG/ML) 5ML CUP GTB ×2 (08:30→21:00)
[2018-01-29] MEDS: DESMOPRESSIN 4 MCG INJ IV (08:31)
[2018-01-29] MEDS: CEFEPIME 1GM/50 ML (PMX) 50 ML IVPB (08:31)
[2018-01-29] MEDS: DOCUSATE SODIUM 10 MG/ML (10ML CUP) GTB (08:37)
[2018-01-29] MEDS: PROPOFOL 100 ML IV ×2 (08:38→21:00)
[2018-01-30] MEDS: LACTATED RINGER'S 1,000 ML IV ×3 (06:57→23:07)
[2018-01-30] MEDS: NEOMYCIN BOTH EYES ×3 (08:24→20:37)
[2018-01-30] MEDS: GRAMICIDIN BOTH EYES ×3 (08:24→20:37)
[2018-01-30] MEDS: [UNRECOGNIZED DRUG - OTHER] BOTH EYES ×3 (08:24→20:37)
[2018-01-30] MEDS: LEVETIRACETAM (100 MG/ML) 5ML CUP GTB ×2 (08:24→20:37)
[2018-01-30] MEDS: PROPOFOL 100 ML IV ×2 (08:25→20:47)
[2018-01-30] MEDS: DEXTROSE 5% 1,000 ML IV (10:55)
[2018-01-30] MEDS: DEXTROSE 5%-0.45% NACL 1,000 ML IV ×2 (18:39→23:08)
[2018-01-30] MEDS: ACETAMINOPHEN 650MG/20.3ML CUP NGT (20:37)
[2018-01-31] MEDS: DEXTROSE 5%-0.45% NACL 1,000 ML IV ×2 (05:41→09:17)
[2018-01-31] MEDS: GRAMICIDIN BOTH EYES (07:53)
[2018-01-31] MEDS: NEOMYCIN BOTH EYES (07:53)
[2018-01-31] MEDS: LACTATED RINGER'S 1,000 ML IV (07:53)
[2018-01-31] MEDS: [UNRECOGNIZED DRUG - OTHER] BOTH EYES (07:53)
[2018-01-31] MEDS: PROPOFOL 100 ML IV (09:00)
[2018-01-31] MEDS: LEVETIRACETAM (100 MG/ML) 5ML CUP GTB (09:17)
[2018-01-31] MEDS: morphine 2 MG INJ IV (13:09)
== END 2018-01-31 13:05 | disposition expired | DRG 870 ==
LOC: E/R 22:03 → ICU 01-22 05:10
PROC: 5A1955Z Respiratory Ventilation, Greater than 96 Consecutive Hours (ICD-10-PCS; principal; 2018-01-26)
PROC: 5A12012 Performance of Cardiac Output, Single, Manual (ICD-10-PCS; 2018-01-26)
PROC: 0BH17EZ Insertion of Endotracheal Airway into Trachea, Via Natural or Artificial Opening (ICD-10-PCS; 2018-01-26)
DX: A41.9 Sepsis, unspecified organism (principal); G93.6 Cerebral edema; G93.5 Compression of brain; G93.40 Encephalopathy, unspecified; J96.20 Acute and chronic respiratory failure, unspecified whether with hypoxia or hypercapnia; J15.1 Pneumonia due to Pseudomonas; R65.21 Severe sepsis with septic shock; E87.2 Acidosis; E87.0 Hyperosmolality and hypernatremia; C71.9 Malignant neoplasm of brain, unspecified; J96.10 Chronic respiratory failure, unspecified whether with hypoxia or hypercapnia; G81.94 Hemiplegia, unspecified affecting left nondominant side; G91.9 Hydrocephalus, unspecified; G40.909 Epilepsy, unspecified, not intractable, without status epilepticus; R57.0 Cardiogenic shock; X58.XXXD Exposure to other specified factors, subsequent encounter; R90.0 Intracranial space-occupying lesion found on diagnostic imaging of central nervous system; R13.10 Dysphagia, unspecified; R33.9 Retention of urine, unspecified; R57.8 Other shock; B96.5 Pseudomonas (aeruginosa) (mallei) (pseudomallei) as the cause of diseases classified elsewhere; B95.61 Methicillin susceptible Staphylococcus aureus infection as the cause of diseases classified elsewhere; S06.890D Other specified intracranial injury without loss of consciousness, subsequent encounter; Z51.5 Encounter for palliative care; Z93.0 Tracheostomy status; Z87.820 Personal history of traumatic brain injury; Z93.1 Gastrostomy status; Z98.890 Other specified postprocedural states
CPT/HCPCS: 36415; 36600; 70450; 70553; 71045; 71260; 74177; 80048; 80053; 80202; 81003; 82803; 82962; 83605; 83735; 84100; 85025; 85610; 85730; 86703; 86850; 86900; 86901; 87040; 87070; 87081; 89220; 92950; 93005; 94002; 94003; 94770; 96365; 96366; 96368; 96375; 96376; 99291-25